=== PATIENT | male | born 1995 | race Caucasian/White ===

== ENCOUNTER 2025-01-02 17:31 | Emergency (ER) | payer OTHER, SELFPAY ==
[2025-01-02 17:33] VITALS: BP 164/84; PULSE 115; RESP 20; TEMP 36.9; O2SAT 97; BMI 47.0
--- NOTE | 2025-01-02 18:29 | EDS_ITS ---
HPI History of Present Illness Chief Complaint: Chest Other Detail of Chief Complaint: Right-sided chest pain Informant: patient and parent Narrative Narrative: Patient presents with right-sided chest pain that he said for about a week. [place] denies injury. Denies recent travel or surgery. Went to urgent care and had a chest x-ray today that was unremarkable and was referred to the ER to rule out PE. Patient has history of erythrocytosis and donates blood frequently. Patient without history of PE or DVT. He has had a chronic cough has been nonproductive. He is on an MERCED inhibitor lisinopril. Pain worse with movement and cough. [facility] Medical History (Updated 01/02/25 @ 20:[address] Travis Thompson, DO) Hypertension Home Medications ?Medication ?Instructions ?Recorded ?Last Taken ?Type amlodipine 10 mg tablet 10 mg PO DAILY 01/02/25 Unkn own History atorvastatin 10 mg tablet 10 mg PO DAILY 01/02/25 Unkn own History lisinopril 10 mg tablet 10 mg PO DAILY 01/02/25 Unkn own History lisinopril 20 mg tablet 20 mg PO DAILY 01/02/25 Unkn own History Allergy/AdvReac Type Severity Reaction Status Date / Time No Known Allergies Allergy Verified 01/02/25 17:32 Social History Smoking Status: Never smoker ROS ROS ED Review of Systems ROS Unobtainable: other Constitutional Constitutional ED: Reports lethargy; Denies chills, fever(s), sweats or weight loss Eyes Eyes: Denies blurry vision, change in vision or diplopia ENT ENT ED: Denies rhinorrhea or sore throat Cardiovascular Cardiovascular: Reports chest pain; Denies orthopnea or racing heartbeat Respiratory/Chest Respiratory/Chest: Reports cough; Denies dyspnea, dyspnea on exertion, orthopnea or sputum Gastrointestinal Gastrointestinal: Denies abdominal pain, diarrhea, nausea or vomiting Genitourinary Genitourinary ED: Denies dysuria, hematuria or urinary frequency Musculoskeletal Musculoskeletal: Denies arthralgias, back pain, myalgias or neck pain Integumentary Denies abscess, Abrasions or rash Neurologic Neurologic: Denies headache(s) or weakness Psychiatric Psychiatric: Denies anxiety, depression or suicidal thoughts Endocrine Endocrinology: Denies polydipsia, polyphagia or polyuria Hematologic/Lymphatic Hematologic/Lymphatic: Denies easy bleeding, easy bruising or lymphadenopathy Allergic/Immunologic Allergic/Immunologic ED: Denies mouth swelling, tongue swelling or urticaria EXAM Physical Exam Const Vital Signs: 01/02/25 17:33 01/02/25 17:41 01/02/25 19:36 Temperature 98.4 F Temperature Source Oral Pulse Rate 115 H 109 H Respiratory Rate 20 H 20 H Respiratory Effort Normal Non-Labored Blood Pressure 164/84 H 151/82 H Blood Pressure Mean 110 105 Pulse Ox 97 99 Oxygen Delivery Method Room Air Room Air Positive well nourished and well developed General Appearance ED: well developed and NAD HEENT Reports TM's clear and moist mucous membranes normocephalic and atraumatic; Negative for trauma or tenderness Tympanic Membrane ED: Yes TM's clear Eyes PERRL and EOMs intact bilaterally General Eye ED: Negative for pale conjunctiva or scleral icterus Neck no lymphadenopathy, supple and no JVD General: Negative for tenderness Chest Wall Negative for inspection of chest normal or palpation of chest normal Chest Narrative: Tenderness palpation over the right chest wall in the midaxillary line that seems to reproduce his pain Chest: tenderness Resp normal respiratory effort and clear to auscultation bilaterally Effort and Inspection: Negative for respiratory distress or pain with movement Auscultation: Negative for rhonchi, wheezes or diminished lung sounds Cardio regular rate, regular rhythm, S1 normal heart sound, S2 normal heart sound and no murmurs Peripheral Pulses: pulses 2+ throughout GI normal to inspection, nondistended, normoactive bowel sounds, soft to palpation, non-tender, non-distended and no masses Back/Spine no CVA tenderness and no thoracic nor lumbar tenderness Extremity normal to inspection General Extremety ED: Negative for edema General Extremity: Negative for edema Neuro oriented x3, CN's II-XII intact bilaterally, no sensory deficits noted and gait normal Sensorium / Orientation: awake, alert, oriented to person, oriented to place and oriented to time Motor Exam: strength 5/5 throughout and strength abnormal Psych mental status grossly normal Skin no rashes or lesions noted and no wounds MDM MDM MDM Narrative Medical decision making narrative: Patient presents to the emergency department with complaint of of right sided chest discomfort that he has had for about a week. He denies any trauma. Seen at urgent care and had a chest x-ray that was unremarkable however they were worried about PE so he was referred to the ER. No significant risk factors for PE. I did obtain basic labs CBC with differential showed a white 11.9 with hemoglobin 12.3 and platelet count of 293. Chemistries were unremarkable. BUN was 23 and creatinine 1.96. Patient had a D-dimer obtained initially and this was elevated 1.26. CTA of the chest was obtained and was negative for PE or acute process. This point suspect possibly musculoskeletal chest pain. He did not want thing for pain for home. He wants to take Tylenol and thinks he can manage. Advised to follow-up with his primary care physician within next 5 to 7 days. Lab Data Attestation: I reviewed the patient's lab results. Labs: Laboratory Results - last 24 hr 01/02/25 18:35 WBC 11.9 H RBC 6.04 Hgb 12.3 L Hct 42.1 MCV 69.7 L MCH 20.4 L MCHC 29.2 L RDW Std Deviation 44.5 H RDW Coeff of Jayjay 19.2 H Plt Count 293 MPV 9.1 Immature Gran % (Auto) 0.300 Neut % (Auto) 74.5 H Lymph % (Auto) 17.8 L [place] % (Auto) 5.5 Eos % (Auto) 1.8 Baso % (Auto) 0.1 Absolute Neuts (auto) 8.8 H Absolute Lymphs (auto) 2.11 Nucleated RBC % 0 D-Dimer Quant (PE/DVT) 1.26 H* Sodium 140 Potassium 4.5 Chloride 106 Carbon Dioxide 21.2 Anion Gap 13 BUN 23 H Creatinine 1.96 H Estim Creat Clear Calc 74.01 Est GFR (MDRD) Non-Af 47 L BUN/Creatinine Ratio 11.9 Glucose 112 H Calcium 9.5 Radiography Diagnostic Testing: Clinical Impression(s) from Imaging Studies Chest CTA 01/02/25 19:02 IMPRESSION: No acute abnormality. Pulmonary artery hypertension Reading Location: [facility] Discharge Plan Triage Chief Complaint: Chest Other ED Provider: Travis Thompson Dx/Rx/DC Orders Clinical Impression: Chest wall pain Instructions: ED Chest Pain, Uncertain Cause, ED Chest Wall Pain, Costochondritis Prescriptions: No Action lisinopril 20 mg tablet 20 mg PO DAILY lisinopril 10 mg tablet 10 mg PO DAILY atorvastatin 10 mg tablet 10 mg PO DAILY amlodipine 10 mg tablet 10 mg PO DAILY Primary Care Provider: Roel Phelps NP Referrals: Roel Phelps NP, [employer] [Primary Care Provider] - 5-7 Days Print Language: Divehi Disposition Disposition: Home, Self Care
[2025-01-02 18:45] LABS: Hematocrit 42.1 % (40-54); Hemoglobin 12.3 g/dL (13.0-16.5); Immature Granulocytes Count 0.030 X10^3/uL (0.0-0.0); Mean Corp Hgb Conc 29.2 g/dL (32-36); Mean Corpuscular Volume 69.7 fL (80-94); Mean Platelet Vol. 9.1 fl (6.2-12.0); NRBC Flagged by Analyzer 0 % (0-5); Platelet Count 293 K/mm3 (150-450); RBC Distribution Width CV 19.2 % (11.6-14.6); RBC Distribution Width SD 44.5 fl (35.1-43.9); Red Blood Count 6.04 M/mm3 (4.6-6.2); White Blood Count 11.9 K/mm3 (4.4-11.0)
[2025-01-02 19:01] LABS: D-Dimer Quantitative (DVT/PE) 1.26 FEU/ug/m (0.27-0.49)
--- NOTE | 2025-01-02 19:02 | CT_ITS ---
PROCEDURE: CTA CHEST W/WO CONTRAST 01/02/2025 REASON FOR EXAM: RIGHT CHEST PAIN TECHNIQUE: CTA CHEST W/WO CONTRAST Multiplanar Sagittal and Coronal images were obtained. Three-dimensional reconstructions CONTRAST: 100 cc VOLUME: Isovue-300 mL One or more dose reduction techniques were used (e.g., Automated exposure control, adjustment of the mA and/or kV according to patient size, use of iterative reconstruction technique). RADIATION DOSE SUMMARY: CTDlvol: 24 mGy DLP: 567.16 mGycm FINDINGS: Normal thoracic aortic caliber. Enlarged main pulmonary artery segment measuring 3.5 cm concerning for pulmonary artery hypertension. No thoracic dissection. Negative for significant coronary artery calcification. No visible pulmonary arterial filling defects. Imaged portions of the upper abdomen are unremarkable. Inspection of the lung parenchyma demonstrates no consolidation, edema or mass. CT/CTA Chest W/WO Contrast IMPRESSION: No acute abnormality. Pulmonary artery hypertension Reading [facility]
[2025-01-02 19:36] VITALS: BP 151/82; PULSE 109; RESP 20; O2SAT 99
[2025-01-02 19:57] LABS: Anion Gap 13 (5-15); BUN 23 mg/dL (4-19); BUN/Creat Ratio 11.9 RATIO (10-20); Calcium,Total 9.5 mg/dL (7.6-11.0); Carbon Dioxide 21.2 mmol/L (21.0-32.0); Chloride 106 mmol/L (98-108); Estimated Creatinine Clearance 74.01 ml/min (50-250); Glucose 112 mg/dL (70-99); Potassium 4.5 mmol/L (3.3-5.1)
[2025-01-02 20:19] VITALS: BP 155/84; PULSE 103; RESP 20; TEMP 36.8; O2SAT 100
== END 2025-01-02 20:20 | disposition home or self-care (01) ==
PROVIDERS: Emergency Provider Emergency Medicine; PCP Nurse Practitioner Family; Visit Provider Emergency Medicine
DX: R07.89 Other chest pain (principal); R05.3 Chronic cough; Z79.899 Other long term (current) drug therapy
CPT/HCPCS: 71275; 80048; 85025; 85379; 99283; Q9967